=== PATIENT | male | born 1950 | race African-American/Black ===

== ENCOUNTER 2018-01-14 12:23 | Inpatient (IN) | payer OTHER ==
[2018-01-14] VITALS (14 sets, daily range): BP systolic 141–186; BP diastolic 68–100
[~2018-01-14] VITALS: Ht 180.3 cm; Wt 99.2 kg
[2018-01-14 12:35] LABS: BASOPHIL (%) 0.4 % (0-1); EOSINOPHIL (%) 4.7 % (0-5); EOSINOPHIL COUNT 0.4 K/uL (0-0.3); HEMATOCRIT 44.5 % (38.0-50.0); IMMATURE GRANULOCYTE (%) 0.2 % (0.0-0.7); LYMPHOCYTE (%) 32.4 % (15-42); MCHC 33.7 G/DL (30.0-36.0); MCV 91.9 FL (86-99); MONOCYTE (%) 11.8 % (3-12); MONOCYTE COUNT 1.1 K/uL (0-0.8); NEUTROPHIL (%) 50.5 % (45-76); NEUTROPHIL COUNT 4.7 K/uL (1.8-6.4); PLATELET COUNT 187 K/uL (156-360); RBC DIS.WIDTH-SD 50.3 % (39-53); RED BLOOD COUNT 4.84 M/uL (4.00-5.50); WHITE BLOOD COUNT 9.3 K/uL (4.1-10.2)
[2018-01-14 12:43] LABS: PTT 31.6 SEC (25-37)
[2018-01-14 12:47] LABS: AMYLASE 118 IU/L (1-118); CHLORIDE 107 mEq/L (99-109); POTASSIUM 4.1 mEq/L (3.7-5.4); SODIUM 144 mEq/L (136-147)
[2018-01-14 12:48] LABS: GLUCOSE 183 mg/dL (70-99)
[2018-01-14 12:52] LABS: CREATININE 1.8 mg/dL (0.6-1.3); SERUM ETHYL ALCOHOL < 10 mg/dL
[2018-01-14 12:53] LABS: UREA NITROGEN (BUN) 24 mg/dL (9-23)
[2018-01-14 12:54] LABS: GFR ESTIMATE (CALCULATED) 40 mL/min/ (58.99-99999)
[2018-01-14 12:55] LABS: LIPASE 67 U/L (1.0-51.0)
[2018-01-14 12:59] LABS: TROP-I INTERPRETATION NEGATIVE; TROPONIN-I 0.04 ng/mL (0.0-0.30)
[2018-01-14] MEDS ORDERED: METHOCARBAMOL500 MG PO (16:12)
[2018-01-14] MEDS ORDERED: VITAMIN B-12500 MC5 SL (16:13)
[2018-01-14] MEDS ORDERED: ADULT ASPIRIN R81 MG PO (16:13)
[2018-01-14] MEDS ORDERED: ALPROSTADIL IC (16:13)
[2018-01-14] MEDS ORDERED: AMLODIPINE BESY10 MG PO (16:14)
[2018-01-14] MEDS ORDERED: LOPRESSOR50 MG PO (16:14)
[2018-01-14] MEDS ORDERED: ENALAPRIL MALEA20 MG PO (16:14)
[2018-01-14] MEDS ORDERED: DICLOFENAC SODI75 MG PO (16:14)
[2018-01-14] MEDS ORDERED: LYRICA100 MG PO (16:14)
[2018-01-14] MEDS ORDERED: JARDIANCE10 MG PO (16:14)
[2018-01-14 20:36] LABS: HEMATOCRIT 44.1 % (38.0-50.0); HEMOGLOBIN 14.4 G/DL (12.5-16.6); MCH 29.9 PG (29.0-34.0); MCHC 32.7 G/DL (30.0-36.0); MCV 91.5 FL (86-99); PLATELET COUNT 186 K/uL (156-360); RBC DIS.WIDTH-SD 50.3 % (39-53); RED BLOOD COUNT 4.82 M/uL (4.00-5.50); WHITE BLOOD COUNT 9.5 K/uL (4.1-10.2)
[2018-01-14 20:47] LABS: ERTH.SED.RATE 23 MM/HR (0-20)
[2018-01-14 20:49] LABS: INTER. NORMALIZED RATIO 1.4
[2018-01-14 20:52] LABS: PTT 33.3 SEC (25-37)
[2018-01-14 20:59] LABS: ALBUMIN 3.8 G/DL (3.2-4.8); ALKALINE PHOSPHATASE 59 IU/L (3-129); ALT (GPT) 36 IU/L (3-49); AST (GOT) 21 IU/L (2-34); CHLORIDE 107 MEQ/L (99-109); CREATININE 1.7 MG/DL (0.6-1.3); GFR ESTIMATE (CALCULATED) 52 mL/min/ (58.99-99999); GLUCOSE 137 mg/dL (70-99); HDL CHOLESTEROL 33 MG/DL (Desirable>=40); NON-HDL CHOLESTEROL 209 mg/dL (Desirable<160); POTASSIUM 3.9 MEQ/L (3.7-5.4); SODIUM 139 MEQ/L (136-147); TOTAL BILIRUBIN 0.3 MG/DL (0.0-1.0); TOTAL CHOLESTEROL 242 mg/dL (Desirable<200); TOTAL PROTEIN 6.6 G/DL (6.4-8.3); TRIGLYCERIDES 409 MG/DL (Normal: <150); UREA NITROGEN (BUN) 26 mg/dL (9-23)
[2018-01-14 21:30] LABS: D-DIMER LATEX POSITIVE
[2018-01-14 21:44] LABS: SCHISTOCYTES NONE SEEN
[2018-01-15] VITALS (10 sets, daily range): BP systolic 139–178; BP diastolic 72–90
[2018-01-15 05:06] LABS: BASOPHIL (%) 0.6 % (0-1); BASOPHIL COUNT 0.1 K/uL (0-0.1); EOSINOPHIL (%) 4.6 % (0-5); EOSINOPHIL COUNT 0.4 K/uL (0-0.3); HEMATOCRIT 43.6 % (38.0-50.0); HEMOGLOBIN 14.2 G/DL (12.5-16.6); IMMATURE GRANULOCYTE (%) 0.3 % (0.0-0.7); LYMPHOCYTE (%) 38.2 % (15-42); LYMPHOCYTE COUNT 3.3 K/uL (1.0-2.8); MCH 29.7 PG (29.0-34.0); MCHC 32.6 G/DL (30.0-36.0); MCV 91.2 FL (86-99); NEUTROPHIL (%) 45.3 % (45-76); NEUTROPHIL COUNT 3.9 K/uL (1.8-6.4); PLATELET COUNT 180 K/uL (156-360); RBC DIS.WIDTH-CV 14.8 % (11.8-14.6); RBC DIS.WIDTH-SD 49.8 % (39-53); RED BLOOD COUNT 4.78 M/uL (4.00-5.50); WHITE BLOOD COUNT 8.6 K/uL (4.1-10.2)
[2018-01-15 05:30] LABS: CHLORIDE 107 MEQ/L (99-109); CREATININE 1.4 MG/DL (0.6-1.3); GFR ESTIMATE (CALCULATED) > 59 mL/min/ (58.99-99999); GLUCOSE 116 mg/dL (70-99); MAGNESIUM 2.2 mg/dl (1.3-2.7); PHOSPHORUS 3.5 mg/dL (2.5-4.9); POTASSIUM 3.8 MEQ/L (3.7-5.4); SODIUM 143 MEQ/L (136-147); UREA NITROGEN (BUN) 23 mg/dL (9-23)
[2018-01-15] MEDS ORDERED: METFORMIN HCL1000 MG PO (10:23)
[2018-01-15 10:50] LABS: HEMOGLOBIN A1c (GLYCOHEMOGLOB) 7.9 % (Below 5.7)
[2018-01-16 03:52] VITALS: BP 178/81
[2018-01-16 06:35] LABS: BASOPHIL (%) 0.7 % (0-1); BASOPHIL COUNT 0.1 K/uL (0-0.1); EOSINOPHIL (%) 6.4 % (0-5); EOSINOPHIL COUNT 0.6 K/uL (0-0.3); HEMATOCRIT 45.8 % (38.0-50.0); HEMOGLOBIN 14.8 G/DL (12.5-16.6); IMMATURE GRANULOCYTE (%) 0.1 % (0.0-0.7); LYMPHOCYTE (%) 38.2 % (15-42); LYMPHOCYTE COUNT 3.5 K/uL (1.0-2.8); MCH 29.5 PG (29.0-34.0); MCHC 32.3 G/DL (30.0-36.0); MCV 91.4 FL (86-99); MONOCYTE (%) 11.2 % (3-12); NEUTROPHIL (%) 43.4 % (45-76); PLATELET COUNT 189 K/uL (156-360); RBC DIS.WIDTH-CV 14.8 % (11.8-14.6); RBC DIS.WIDTH-SD 49.4 % (39-53); RED BLOOD COUNT 5.01 M/uL (4.00-5.50); WHITE BLOOD COUNT 9.2 K/uL (4.1-10.2)
[2018-01-16 06:46] LABS: CHLORIDE 104 MEQ/L (99-109); CREATININE 1.4 MG/DL (0.6-1.3); GFR ESTIMATE (CALCULATED) > 59 mL/min/ (58.99-99999); GLUCOSE 109 mg/dL (70-99); MAGNESIUM 2.2 mg/dl (1.3-2.7); PHOSPHORUS 3.1 mg/dL (2.5-4.9); SODIUM 142 MEQ/L (136-147); UREA NITROGEN (BUN) 20 mg/dL (9-23)
[2018-01-16 08:08] VITALS: BP 181/84
[2018-01-16 12:26] VITALS: BP 148/75
[2018-01-16 16:17] VITALS: BP 146/73
[2018-01-16 20:07] VITALS: BP 143/70
[2018-01-16 23:57] VITALS: BP 149/71
[2018-01-17 04:13] VITALS: BP 133/70
[2018-01-17 06:51] LABS: BASOPHIL (%) 0.4 % (0-1); EOSINOPHIL (%) 5.5 % (0-5); EOSINOPHIL COUNT 0.5 K/uL (0-0.3); HEMATOCRIT 46.6 % (38.0-50.0); HEMOGLOBIN 15.1 G/DL (12.5-16.6); IMMATURE GRANULOCYTE (%) 0.3 % (0.0-0.7); LYMPHOCYTE (%) 38.1 % (15-42); LYMPHOCYTE COUNT 3.7 K/uL (1.0-2.8); MCH 29.8 PG (29.0-34.0); MCHC 32.4 G/DL (30.0-36.0); MCV 91.9 FL (86-99); MONOCYTE (%) 11.1 % (3-12); MONOCYTE COUNT 1.1 K/uL (0-0.8); NEUTROPHIL (%) 44.6 % (45-76); NEUTROPHIL COUNT 4.3 K/uL (1.8-6.4); PLATELET COUNT 189 K/uL (156-360); RBC DIS.WIDTH-CV 14.8 % (11.8-14.6); RBC DIS.WIDTH-SD 49.8 % (39-53); RED BLOOD COUNT 5.07 M/uL (4.00-5.50); WHITE BLOOD COUNT 9.6 K/uL (4.1-10.2)
[2018-01-17 07:04] VITALS: BP 152/75
[2018-01-17 07:13] LABS: CHLORIDE 104 MEQ/L (99-109); CREATININE 1.6 MG/DL (0.6-1.3); GFR ESTIMATE (CALCULATED) 56 mL/min/ (58.99-99999); GLUCOSE 119 mg/dL (70-99); MAGNESIUM 2.1 mg/dl (1.3-2.7); POTASSIUM 4.2 MEQ/L (3.7-5.4); SODIUM 141 MEQ/L (136-147); UREA NITROGEN (BUN) 26 mg/dL (9-23)
[2018-01-17 07:16] LABS: PHOSPHORUS 4.2 mg/dL (2.5-4.9)
[2018-01-17] MEDS ORDERED: ATORVASTATIN CA80 MG PO (10:57)
[2018-01-17] MEDS ORDERED: CEPHALEXIN500 MG PO (10:57)
[2018-01-17] MEDS ORDERED: ASPIRIN EC325 MG PO (10:57)
[2018-01-17 11:19] VITALS: BP 137/88
[2018-01-17] MEDS ORDERED: NOVOLOG 10100 UNITS/ SC (15:32)
[2018-01-17] MEDS ORDERED: ULTRAM50 MG PO (15:33)
[2018-01-17] MEDS ORDERED: LYRICA100 MG PO (15:34)
[2018-01-17] MEDS ORDERED: COLACE100 MG PO (15:36)
[2018-01-17] MEDS ORDERED: ACETAMINOPHEN325 M1 PO (15:37)
[2018-01-17] MEDS ORDERED: VITAMIN B-12500 MC5 SL (15:46)
[2018-01-17] MEDS ORDERED: JARDIANCE10 MG PO (15:46)
[2018-01-17] MEDS ORDERED: GLUCOPHAGE1000 MG PO (15:47)
== END 2018-01-17 15:08 | DRG 63 ==
LOC: EME 12:23 → EDOF 15:49 → 4WEST 15:49 → ENRESERV 15:52 → CANRESERV 15:52 → ENRESERV 16:10 → 4WEST 16:53 → ENRESERV 01-15 15:57 → 5SOUTH 01-15 18:19
PROVIDERS: Emergency Medicine; Internal Medicine; Specialist
DX: I63.9 Cerebral infarction, unspecified (principal); I12.9 Hypertensive chronic kidney disease with stage 1 through stage 4 chronic kidney disease, or unspecified chronic kidney disease; E11.65 Type 2 diabetes mellitus with hyperglycemia; E11.22 Type 2 diabetes mellitus with diabetic chronic kidney disease; F17.210 Nicotine dependence, cigarettes, uncomplicated; Z68.30 Body mass index [BMI] 30.0-30.9, adult; R29.810 Facial weakness; R47.02 Dysphasia; E78.5 Hyperlipidemia, unspecified; N18.9 Chronic kidney disease, unspecified; R29.709 NIHSS score 9; Z90.49 Acquired absence of other specified parts of digestive tract; Z79.82 Long term (current) use of aspirin; Z86.73 Personal history of transient ischemic attack (TIA), and cerebral infarction without residual deficits; Z83.3 Family history of diabetes mellitus; Z82.49 Family history of ischemic heart disease and other diseases of the circulatory system
CPT/HCPCS: 70450; 70496; 70498; 70551; 71045; 80047; 80048; 80053; 80061; 81003; 82150; 82948; 83036; 83690; 83735; 84100; 84443; 84484; 85025; 85027; 85378; 85610; 85652; 85730; 86850; 86900; 86901; 87040; 87641; 93005; 93971; 97530 GO; 97530 GP; 99281; 99285; C8923; G0480; J1815; J2997

== ENCOUNTER 2018-01-17 09:25 | Inpatient (IN) | payer OTHER ==
[~2018-01-17] VITALS: Ht 180.3 cm; Wt 97.4 kg
[~2018-01-17 09:25] MED LIST: ADULT ASPIRIN R81 MG PO; ALPROSTADIL IC; AMLODIPINE BESY10 MG PO; DICLOFENAC SODI75 MG PO; ENALAPRIL MALEA20 MG PO; JARDIANCE10 MG PO; LOPRESSOR50 MG PO; LYRICA100 MG PO; METFORMIN HCL1000 MG PO; METHOCARBAMOL500 MG PO; VITAMIN B-12500 MC5 SL
[2018-01-17] MEDS ORDERED: ASPIRIN EC325 MG PO (10:57)
[2018-01-17] MEDS ORDERED: ATORVASTATIN CA80 MG PO (10:57)
[2018-01-17] MEDS ORDERED: CEPHALEXIN500 MG PO (10:57)
[2018-01-17] MEDS ORDERED: NOVOLOG 10100 UNITS/ SC (15:32)
[2018-01-17] MEDS ORDERED: ULTRAM50 MG PO (15:33)
[2018-01-17] MEDS ORDERED: LYRICA100 MG PO (15:34)
[2018-01-17] MEDS ORDERED: COLACE100 MG PO (15:36)
[2018-01-17] MEDS ORDERED: ACETAMINOPHEN325 M1 PO (15:37)
[2018-01-17] MEDS ORDERED: JARDIANCE10 MG PO (15:46)
[2018-01-17] MEDS ORDERED: VITAMIN B-12500 MC5 SL (15:46)
[2018-01-17] MEDS ORDERED: GLUCOPHAGE1000 MG PO (15:47)
[2018-01-17 15:55] VITALS: BP 150/76
[2018-01-18 00:51] VITALS: BP 152/68
[2018-01-18 05:47] VITALS: BP 139/81
[2018-01-18 15:31] VITALS: BP 131/69
[2018-01-19 06:01] VITALS: BP 144/75
[2018-01-19 15:50] VITALS: BP 121/65
[2018-01-20 05:35] LABS: BASOPHIL (%) 0.4 % (0-1); EOSINOPHIL (%) 5.3 % (0-5); EOSINOPHIL COUNT 0.5 K/uL (0-0.3); HEMATOCRIT 44.1 % (38.0-50.0); HEMOGLOBIN 14.3 G/DL (12.5-16.6); IMMATURE GRANULOCYTE (%) 0.3 % (0.0-0.7); LYMPHOCYTE (%) 35.4 % (15-42); LYMPHOCYTE COUNT 3.6 K/uL (1.0-2.8); MCH 29.6 PG (29.0-34.0); MCHC 32.4 G/DL (30.0-36.0); MCV 91.3 FL (86-99); NEUTROPHIL (%) 48.6 % (45-76); PLATELET COUNT 208 K/uL (156-360); RBC DIS.WIDTH-CV 14.5 % (11.8-14.6); RBC DIS.WIDTH-SD 49.3 % (39-53); RED BLOOD COUNT 4.83 M/uL (4.00-5.50); WHITE BLOOD COUNT 10.3 K/uL (4.1-10.2)
[2018-01-20 05:55] VITALS: BP 152/77
[2018-01-20 06:00] LABS: ALBUMIN 3.9 G/DL (3.2-4.8); ALKALINE PHOSPHATASE 60 IU/L (3-129); ALT (GPT) 22 IU/L (3-49); AST (GOT) 18 IU/L (2-34); CHLORIDE 109 MEQ/L (99-109); CREATININE 1.4 MG/DL (0.6-1.3); GFR ESTIMATE (CALCULATED) > 59 mL/min/ (58.99-99999); GLUCOSE 110 mg/dL (70-99); POTASSIUM 4.2 MEQ/L (3.7-5.4); SODIUM 141 MEQ/L (136-147); UREA NITROGEN (BUN) 28 mg/dL (9-23)
[2018-01-20 06:03] LABS: TOTAL BILIRUBIN 0.4 MG/DL (0.0-1.0)
[2018-01-20 15:25] VITALS: BP 136/65
[2018-01-20 20:14] VITALS: BP 155/72
[2018-01-20 20:40] LABS: APPEARANCE CLEAR ((CLEAR)); BILIRUBIN NEGATIVE; BLOOD NEGATIVE; COLOR YELLOW ((YELLOW)); GLUCOSE (STRIP) 50; KETONES NEGATIVE; LEUKOCYTES NEGATIVE; NITRITE NEGATIVE; PROTEIN (STRIP) NEGATIVE; UROBILINOGEN 0.2 MG/DL (0.2-1.0)
[2018-01-20 21:24] LABS: UR CREATININE CONCENTRATION 167.2 MG/DL
[2018-01-21 05:43] VITALS: BP 132/60
[2018-01-21 06:12] LABS: BASOPHIL (%) 0.5 % (0-1); BASOPHIL COUNT 0.1 K/uL (0-0.1); EOSINOPHIL (%) 4.6 % (0-5); EOSINOPHIL COUNT 0.4 K/uL (0-0.3); HEMATOCRIT 44.2 % (38.0-50.0); HEMOGLOBIN 14.6 G/DL (12.5-16.6); IMMATURE GRANULOCYTE (%) 0.3 % (0.0-0.7); LYMPHOCYTE (%) 35.5 % (15-42); LYMPHOCYTE COUNT 3.4 K/uL (1.0-2.8); MCH 30.4 PG (29.0-34.0); MCV 91.9 FL (86-99); MONOCYTE (%) 10.5 % (3-12); NEUTROPHIL (%) 48.6 % (45-76); NEUTROPHIL COUNT 4.6 K/uL (1.8-6.4); PLATELET COUNT 218 K/uL (156-360); RBC DIS.WIDTH-CV 14.6 % (11.8-14.6); RBC DIS.WIDTH-SD 49.5 % (39-53); RED BLOOD COUNT 4.81 M/uL (4.00-5.50); WHITE BLOOD COUNT 9.5 K/uL (4.1-10.2)
[2018-01-21 06:48] LABS: CHLORIDE 108 MEQ/L (99-109); CREATININE 1.3 MG/DL (0.6-1.3); GFR ESTIMATE (CALCULATED) > 59 mL/min/ (58.99-99999); GLUCOSE 94 mg/dL (70-99); PHOSPHORUS 3.5 mg/dL (2.5-4.9); POTASSIUM 4.1 MEQ/L (3.7-5.4); SODIUM 140 MEQ/L (136-147); UREA NITROGEN (BUN) 28 mg/dL (9-23)
[2018-01-21 15:03] VITALS: BP 135/68
[2018-01-22 05:59] VITALS: BP 153/74
[2018-01-22 06:17] LABS: CHLORIDE 111 MEQ/L (99-109); CREATININE 1.4 MG/DL (0.6-1.3); GFR ESTIMATE (CALCULATED) > 59 mL/min/ (58.99-99999); GLUCOSE 101 mg/dL (70-99); POTASSIUM 4.2 MEQ/L (3.7-5.4); SODIUM 143 MEQ/L (136-147); UREA NITROGEN (BUN) 28 mg/dL (9-23)
[2018-01-22 16:35] VITALS: BP 132/63
[2018-01-23 05:54] VITALS: BP 150/70
[2018-01-23 15:04] VITALS: BP 139/74
[2018-01-24 05:09] VITALS: BP 126/61
[2018-01-24 15:06] VITALS: BP 133/66
[2018-01-25 04:41] VITALS: BP 152/81
[2018-01-25 16:04] VITALS: BP 121/57
[2018-01-26 05:44] VITALS: BP 137/63
[2018-01-26 07:43] LABS: ALBUMIN 3.7 G/DL (3.2-4.8); ALKALINE PHOSPHATASE 65 IU/L (3-129); ALT (GPT) 21 IU/L (3-49); AST (GOT) 16 IU/L (2-34); CHLORIDE 110 MEQ/L (99-109); CREATININE 1.5 MG/DL (0.6-1.3); GFR ESTIMATE (CALCULATED) > 59 mL/min/ (58.99-99999); GLUCOSE 108 mg/dL (70-99); PHOSPHORUS 3.5 mg/dL (2.5-4.9); POTASSIUM 4.6 MEQ/L (3.7-5.4); SODIUM 142 MEQ/L (136-147); TOTAL BILIRUBIN 0.4 MG/DL (0.0-1.0); TOTAL PROTEIN 6.8 G/DL (6.4-8.3); UREA NITROGEN (BUN) 31 mg/dL (9-23)
[2018-01-26 16:13] VITALS: BP 141/71
[2018-01-27 07:27] LABS: CHLORIDE 109 MEQ/L (99-109); CREATININE 1.5 MG/DL (0.6-1.3); GFR ESTIMATE (CALCULATED) > 59 mL/min/ (58.99-99999); GLUCOSE 113 mg/dL (70-99); POTASSIUM 4.2 MEQ/L (3.7-5.4); SODIUM 141 MEQ/L (136-147); UREA NITROGEN (BUN) 29 mg/dL (9-23)
[2018-01-27 15:29] VITALS: BP 139/65
[2018-01-28 05:19] VITALS: BP 158/73
[2018-01-28 10:37] VITALS: BP 141/67
[2018-01-28 15:10] VITALS: BP 131/64
[2018-01-29 05:51] VITALS: BP 154/74
[2018-01-29 07:33] VITALS: BP 169/75
[2018-01-29 15:59] VITALS: BP 115/55
[2018-01-30 05:42] VITALS: BP 149/71
[2018-01-30 07:21] VITALS: BP 151/67
[2018-01-30 15:30] VITALS: BP 134/73
[2018-01-31 05:39] VITALS: BP 165/75
[2018-01-31 15:31] VITALS: BP 120/56
[2018-02-01 06:04] VITALS: BP 150/81
[2018-02-01 15:34] VITALS: BP 131/73
[2018-02-02 05:45] VITALS: BP 165/79
[2018-02-02 16:06] VITALS: BP 163/72
[2018-02-03 07:04] VITALS: BP 131/60
[2018-02-03 07:51] LABS: HEMATOCRIT 45.3 % (38.0-50.0); MCH 30.1 PG (29.0-34.0); MCHC 33.1 G/DL (30.0-36.0); MCV 90.8 FL (86-99); RBC DIS.WIDTH-CV 14.2 % (11.8-14.6); RBC DIS.WIDTH-SD 47.7 % (39-53); RED BLOOD COUNT 4.99 M/uL (4.00-5.50); WHITE BLOOD COUNT 8.9 K/uL (4.1-10.2)
[2018-02-03 08:04] LABS: PLATELET COUNT 305 K/uL (156-360)
[2018-02-03 08:15] LABS: CHLORIDE 108 MEQ/L (99-109); CREATININE 1.3 MG/DL (0.6-1.3); GFR ESTIMATE (CALCULATED) > 59 mL/min/ (58.99-99999); GLUCOSE 118 mg/dL (70-99); SODIUM 142 MEQ/L (136-147); UREA NITROGEN (BUN) 19 mg/dL (9-23)
[2018-02-03 17:10] VITALS: BP 137/65
[2018-02-04 05:47] VITALS: BP 154/70
[2018-02-04 15:28] VITALS: BP 138/68
[2018-02-04 21:13] VITALS: BP 147/65
[2018-02-05 06:40] VITALS: BP 129/76
[2018-02-05 06:57] VITALS: BP 138/70
[2018-02-05 15:45] VITALS: BP 131/90
[2018-02-06 05:34] VITALS: BP 141/74
[2018-02-06 08:29] VITALS: BP 144/81
[2018-02-06 15:50] VITALS: BP 147/66
[2018-02-07 06:12] VITALS: BP 144/67
[2018-02-07 15:01] VITALS: BP 134/65
[2018-02-08 05:55] VITALS: BP 135/86
[2018-02-08 15:51] VITALS: BP 146/80
[2018-02-09 06:00] VITALS: BP 151/70
[2018-02-09 15:36] VITALS: BP 135/62
[2018-02-10 06:05] VITALS: BP 161/77
[2018-02-10 15:30] VITALS: BP 159/76
[2018-02-11 05:39] VITALS: BP 168/72
[2018-02-11 15:48] VITALS: BP 173/77
[2018-02-11 15:58] VITALS: BP 128/77
[2018-02-12 06:43] VITALS: BP 174/78
[2018-02-12 07:25] VITALS: BP 164/72
[2018-02-12 16:13] VITALS: BP 133/69
[2018-02-13 05:27] VITALS: BP 155/72
[2018-02-13 08:11] VITALS: BP 168/77
[2018-02-13 15:53] VITALS: BP 139/66
[2018-02-14 04:58] VITALS: BP 144/70
[2018-02-14 07:20] LABS: BASOPHIL (%) 0.6 % (0-1); BASOPHIL COUNT 0.1 K/uL (0-0.1); EOSINOPHIL (%) 4.1 % (0-5); EOSINOPHIL COUNT 0.4 K/uL (0-0.3); HEMATOCRIT 42.8 % (38.0-50.0); HEMOGLOBIN 13.9 G/DL (12.5-16.6); IMMATURE GRANULOCYTE (%) 0.2 % (0.0-0.7); LYMPHOCYTE (%) 36.6 % (15-42); LYMPHOCYTE COUNT 3.3 K/uL (1.0-2.8); MCH 29.4 PG (29.0-34.0); MCHC 32.5 G/DL (30.0-36.0); MCV 90.5 FL (86-99); MONOCYTE (%) 13.8 % (3-12); MONOCYTE COUNT 1.3 K/uL (0-0.8); NEUTROPHIL (%) 44.7 % (45-76); RBC DIS.WIDTH-CV 13.9 % (11.8-14.6); RED BLOOD COUNT 4.73 M/uL (4.00-5.50)
[2018-02-14 07:26] LABS: ALBUMIN 3.7 G/DL (3.2-4.8); ALKALINE PHOSPHATASE 64 IU/L (3-129); ALT (GPT) 39 IU/L (3-49); AST (GOT) 22 IU/L (2-34); CHLORIDE 107 MEQ/L (99-109); CREATININE 1.2 MG/DL (0.6-1.3); GFR ESTIMATE (CALCULATED) > 59 mL/min/ (58.99-99999); GLUCOSE 156 mg/dL (70-99); POTASSIUM 4.2 MEQ/L (3.7-5.4); SODIUM 141 MEQ/L (136-147); TOTAL BILIRUBIN 0.3 MG/DL (0.0-1.0); TOTAL PROTEIN 6.4 G/DL (6.4-8.3); UREA NITROGEN (BUN) 27 mg/dL (9-23)
[2018-02-14 07:46] LABS: PLAT.SUFFICIENCY ADEQUATE
[2018-02-14 07:47] LABS: PLATELET COUNT 208 K/uL (156-360)
[2018-02-14 15:33] VITALS: BP 133/60
[2018-02-15 04:50] VITALS: BP 124/65
[2018-02-15 15:11] VITALS: BP 126/60
[2018-02-16 05:32] VITALS: BP 162/81
[2018-02-16 15:55] VITALS: BP 138/62
[2018-02-17 05:36] VITALS: BP 151/74
[2018-02-17 11:21] VITALS: BP 159/74
[2018-02-17 16:14] VITALS: BP 131/78
[2018-02-17 19:07] LABS: HEMATOCRIT 42.2 % (38.0-50.0); HEMOGLOBIN 13.7 G/DL (12.5-16.6); MCH 29.5 PG (29.0-34.0); MCHC 32.5 G/DL (30.0-36.0); MCV 90.8 FL (86-99); PLATELET COUNT 188 K/uL (156-360); RBC DIS.WIDTH-CV 14.2 % (11.8-14.6); RBC DIS.WIDTH-SD 48.1 % (39-53); RED BLOOD COUNT 4.65 M/uL (4.00-5.50); WHITE BLOOD COUNT 9.4 K/uL (4.1-10.2)
[2018-02-17 19:31] LABS: CHLORIDE 108 MEQ/L (99-109); CREATININE 1.3 MG/DL (0.6-1.3); GFR ESTIMATE (CALCULATED) > 59 mL/min/ (58.99-99999); GLUCOSE 166 mg/dL (70-99); SODIUM 139 MEQ/L (136-147); UREA NITROGEN (BUN) 27 mg/dL (9-23)
[2018-02-18 05:50] VITALS: BP 158/74
[2018-02-18] MEDS ORDERED: LOVENOX40 MG/0.4 SC (11:18)
[2018-02-18] MEDS ORDERED: ENALAPRIL MALEA10 MG PO (11:19)
[2018-02-18] MEDS ORDERED: COLACE100 MG PO (11:20)
[2018-02-18] MEDS ORDERED: POLYETHYLENE GL17 GM PO (11:20)
[2018-02-18] MEDS ORDERED: SENNA PLUS TAB1 EACH PO (11:21)
[2018-02-18] MEDS ORDERED: FAMOTIDINE20 MG PO (11:21)
[2018-02-18] MEDS ORDERED: ENDOCET 5-3251 EACH PO (11:22)
== END 2018-02-18 14:25 | DRG 65 ==
LOC: 3WEST 09:25 → ENPENDDIS 02-12 → 3WEST 02-15 18:45 → EDPENDDISDT 02-18 → 3WEST 02-18 14:25
PROVIDERS: Internal Medicine Nephrology; Physical Medicine & Rehabilitation Pain Medicine; Psychiatry & Neurology Neurology
DX: I63.9 Cerebral infarction, unspecified (principal); R47.1 Dysarthria and anarthria; E66.01 Morbid (severe) obesity due to excess calories; G81.94 Hemiplegia, unspecified affecting left nondominant side; L03.90 Cellulitis, unspecified; R41.4 Neurologic neglect syndrome; N17.9 Acute kidney failure, unspecified; I10 Essential (primary) hypertension; E11.319 Type 2 diabetes mellitus with unspecified diabetic retinopathy without macular edema; E11.51 Type 2 diabetes mellitus with diabetic peripheral angiopathy without gangrene; E78.5 Hyperlipidemia, unspecified; I12.9 Hypertensive chronic kidney disease with stage 1 through stage 4 chronic kidney disease, or unspecified chronic kidney disease; M54.5 Low back pain; N18.3 Chronic kidney disease, stage 3 (moderate); K59.00 Constipation, unspecified; F17.200 Nicotine dependence, unspecified, uncomplicated; E11.22 Type 2 diabetes mellitus with diabetic chronic kidney disease; Z79.84 Long term (current) use of oral hypoglycemic drugs; Z79.899 Other long term (current) drug therapy; Z86.19 Personal history of other infectious and parasitic diseases; Z82.49 Family history of ischemic heart disease and other diseases of the circulatory system; Z83.3 Family history of diabetes mellitus; Z86.73 Personal history of transient ischemic attack (TIA), and cerebral infarction without residual deficits; Z68.29 Body mass index [BMI] 29.0-29.9, adult; Z79.82 Long term (current) use of aspirin; T39.395A Adverse effect of other nonsteroidal anti-inflammatory drugs [NSAID], initial encounter; G89.29 Other chronic pain
CPT/HCPCS: 71045; 72100; 72158; 76770; 80048; 80053; 80069; 81003; 82570; 82948; 83735; 84100; 84156; 85025; 85027; 92507 GN; 92523 GN; 92526 GN; 92610 GN; 97110 GO; 97112 GO; 97530 GP; G0283 GO; G0515 GO; J1650; J1815